=== PATIENT | female | born 1980 | race Caucasian/White ===

== ENCOUNTER 2025-06-22 20:39 | Emergency (ER) | payer OTHER ==
[~2025-06-22] VITALS: Ht 160 cm; Wt 49.9 kg
[2025-06-22 20:45] VITALS: BP 111/68
[2025-06-23 00:20] VITALS: BP 109/72; O2SAT 97
== END 2025-06-23 00:21 | disposition home or self-care (01) ==
LOC: ER 20:59
DX: Z02.89 Encounter for other administrative examinations (principal); G40.909 Epilepsy, unspecified, not intractable, without status epilepticus; G43.909 Migraine, unspecified, not intractable, without status migrainosus; F10.10 Alcohol abuse, uncomplicated; F12.90 Cannabis use, unspecified, uncomplicated; F17.290 Nicotine dependence, other tobacco product, uncomplicated; F31.9 Bipolar disorder, unspecified
CPT/HCPCS: A4606; A4663